=== PATIENT | male | born 1990 | race Caucasian/White ===

== ENCOUNTER 2023-12-06 20:45 | Emergency (ER) | payer OTHER, SELFPAY ==
--- NOTE | ~2023-12-06 | XR_ITS ---
EXAMINATION: XR SHOULDER, RIGHT CLINICAL INFORMATION: Pain after fall COMPARISON: None available. TECHNIQUE: AP external rotation, Grashey, scapular Y, and axillary views of the right shoulder. FINDINGS: The bones and soft tissues are normal. No fracture. Glenohumeral and acromioclavicular alignment is anatomic with normal joint space. No abnormal soft tissue calcifications. XR/XR shoulder RT min 2V IMPRESSION: Normal right shoulder. Electronically signed by: Fer Islas MD 12/06/2023 10:56 PM EDT
--- NOTE | 2023-12-06 20:47 | ED_ITS ---
HPI - General Adult General Chief complaint: Extremity Injury, Upper Stated complaint: Right shoulder injury Time Seen by Provider: 12/06/23 22:40 Source: patient Mode of arrival: ambulatory Limitations: no limitations History of Present Illness ED Provider: shannon FELDMAN narrative: Patient with the fell down to the ground and hit his right shoulder happened earlier today no deformity patient able to move his shoulder pretty well slight tenderness the top of the shoulder Related Data Previous Rx's ?Medication ?Instructions ?Recorded ibuprofen 600 mg tablet 600 mg PO Q6H PRN fever or pain 12/06/23 #30 tabs Allergies Allergy/AdvReac Type Severity Reaction Status Date / Time No Known Allergies Allergy Verified 12/06/23 20:50 Review of Systems 2 Review of Systems: Yes all other systems are reviewed and are negative PMFSH Social History Social History Advance Directives: No Advance Directives Information Provided: No Do you have a plan to hurt others: No Plan Physical Exam ED Vital Signs: Vital Signs - 24 hr 12/06/23 20:49 12/06/23 23:23 Temperature 98 F 97.9 F Pulse Rate 89 61 Respiratory Rate 20 18 Blood Pressure 140/89 H 140/83 H Pulse Oximetry 96 98 Oxygen Delivery Method Room Air Room Air BMI result Body Mass Index 34.0 Extrem Shoulder/upper arm images: 2 1. Mild diffuse tenderness open can sign negative for rotator cuff injury Course Course Course Narrative: RME performed by Elise Lara PA-C. Patient is a 33 year old assigned male at presenting to the emergency department with right shoulder pain. Patient states that he fell down onto the ground and hit his right shoulder. Detailed physical exam and review of systems are deferred to the primary care physician. Imaging ordered. Patient placed back in the waiting room pending room availability and results. Medications Administered Discontinued Medications Generic Name Dose Route Start Last Admin Trade Name Freq PRN Reason Stop Dose Admin Ibuprofen 600 mg 12/06/23 22:53 12/06/23 22:56 Ibuprofen 600 Mg Tablet PO 12/06/23 22:54 600 mg ONCE ONE Administration Medical Decision Making Medical Decision Making [facility] Narrative: Patient clinically with left shoulder contusion with no significant rotator cuff injury x-ray negative for fracture Discharge Plan Discharge Clinical Impression: Contusion of right shoulder Patient Disposition: Home, Self-Care Instructions: Shoulder Sprain (ED) Additional Instructions: Possible you have right shoulder cartilage injury Rest your right arm Wear sling for support Apply ice pack Ibuprofen for pain Follow with Orthopedics if pain continues Prescriptions: New ibuprofen 600 mg tablet 600 mg PO Q6H PRN (Reason: fever or pain) Qty: 30 0RF Referrals: Norm Reilly MD [Physician] - 1 week Stand Alone Forms: Work/School Release Discharge Date/Time: 12/06/23 23:42 Print Language: Slovenian
[2023-12-06 20:49] VITALS: BP 140/89; PULSE 89; RESP 20; TEMP 36.6; O2SAT 96; BMI 34.0
[2023-12-06] MEDS: Ibuprofen 600 MG TABLET PO (22:56)
[2023-12-06 23:23] VITALS: BP 140/83; PULSE 61; RESP 18; TEMP 36.6; O2SAT 98
== END 2023-12-06 23:42 | disposition home or self-care (01) ==
PROVIDERS: Emergency Provider Internal Medicine
DX: S40.012A Contusion of left shoulder, initial encounter (principal); W18.30XA Fall on same level, unspecified, initial encounter; Y93.9 Activity, unspecified; Y92.9 Unspecified place or not applicable; Y99.9 Unspecified external cause status
CPT/HCPCS: 73030; 99283

== ENCOUNTER → 2023-12-09 08:46 | Outpatient (BNVA) | payer OTHER, SELFPAY | PROVIDERS: Visit Provider Physician Assistant Medical | DX: S43.401A Unspecified sprain of right shoulder joint, initial encounter (principal); X58.XXXA Exposure to other specified factors, initial encounter | CPT/HCPCS: 99203 ==

== ENCOUNTER → 2023-12-16 09:25 | Outpatient (BNVA) | payer OTHER, SELFPAY | PROVIDERS: Visit Provider Internal Medicine | DX: S43.401A Unspecified sprain of right shoulder joint, initial encounter (principal); X58.XXXA Exposure to other specified factors, initial encounter | CPT/HCPCS: 99213 ==

== ENCOUNTER 2024-01-23 10:00 | Outpatient (RCR) | payer OTHER, BC, SELFPAY | END 2024-03-02 10:55 | disposition home or self-care (01) | LOC: HO.PT 10:00 | PROVIDERS: PCP Physician Assistant; Visit Provider Orthopaedic Surgery | DX: S43.51XD Sprain of right acromioclavicular joint, subsequent encounter (principal) | CPT/HCPCS: 97110; 97140; 97161; 97530 ==

== ENCOUNTER → 2024-01-24 10:40 | Outpatient (BNVA) | payer OTHER, SELFPAY | PROVIDERS: PCP Physician Assistant; Visit Provider Registered Nurse | DX: S43.51XD Sprain of right acromioclavicular joint, subsequent encounter (principal); W18.39XD Other fall on same level, subsequent encounter | CPT/HCPCS: 99213 ==

== ENCOUNTER 2024-08-03 23:34 | Emergency (ER) | payer OTHER, SELFPAY ==
[2024-08-03 23:39] VITALS: BP 119/70; PULSE 71; RESP 18; TEMP 36.7; O2SAT 97; BMI 34.7
[2024-08-04 00:21] LABS: MANUAL DIFF FLAG NO
[2024-08-04 00:23] LABS: Basophils Absolute Auto 0.1 X10*3/uL (0.0-0.2); Basophils Percent Auto 1.1 % (0-2); Eosinophils Absolute Auto 0.2 X10*3/uL (0.0-0.4); Eosinophils Percent Auto 2.3 % (0-4); Hematocrit 45.2 % (42.0-52.0); Hemoglobin 15.9 g/dl (14.0-18.0); Imm Gran Abs Auto 0.03 X10*3/uL (0.00-0.03); Imm Gran Pct Auto 0.3 % (0.0-0.4); Lymphocytes Absolute Auto 3.1 X10*3/uL (1.2-4.9); Lymphocytes Percent Auto 32.4 % (20-40); Mean Corpuscular HGB Conc 35.2 g/dl (31.0-36.0); Mean Corpuscular Volume 82.3 fL (80.0-98.0); Mean Platelet Volume 9.7 fL (9.4-12.4); Monocytes Absolute Auto 0.7 X10*3/uL (0.1-1.2); Monocytes Percent Auto 7.1 % (2-11); Neutrophils Absolute Auto 5.5 x10*3/uL (2.0-8.3); Neutrophils Percent Auto 56.8 % (45-73); Platelet Count 242 X10*3/uL (160-400); Red Blood Count 5.49 X10*6/uL (4.60-5.80); Red Cell Distribution Width 13.1 % (11.0-16.0); White Blood Count 9.7 X10*3/uL (4.8-10.8)
[2024-08-04 00:36] LABS: Alanine Aminotransferase 29 U/L (0-40); Albumin Level 4.3 g/dL (3.5-5.0); Alkaline Phosphatase 72 U/L (39-117); Anion Gap 13 (12-20); Aspartate Amino Transferase 27 U/L (5-37); Bilirubin Direct 0.1 mg/dL (0.0-0.5); Bilirubin Total 0.4 mg/dL (0.0-1.0); Blood Urea Nitrogen 15 mg/dL (9-16); Calcium 9.1 mg/dL (8.4-10.2); Carbon Dioxide 25 mmol/L (22-29); Chloride 108 mmol/L (96-108); Creatinine Clr Calc Pharmacy 110.9; Estimated Glomerular Filt Rate > 60; Glucose Random 95 mg/dL (60-115); Potassium 4.2 mmol/L (3.3-5.1); Sodium 142 mmol/L (135-145)
--- NOTE | 2024-08-04 00:54 | ED_ITS ---
HPI - Medical Clearance General Chief complaint: Body Fluid Exposure Stated complaint: Body Fluid Exposure Time Seen by Provider: 08/04/24 00:14 Source: patient Mode of arrival: ambulatory Limitations: no limitations History of Present Illness ED Provider: Catarina Sprague NP HPI Narrative: Patient is a 34-year-old male who presents to the emergency department for evaluation. 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 Reports that the patient had spit into his face and that he felt the contact and that some went directly into his mouth. Related Information Previous Rx's ?Medication ?Instructions ?Recorded cyclobenzaprine 5 mg tablet 5 mg PO .QHS PRN muscle spasm #20 12/23/23 tabs Allergies Allergy/AdvReac Type Severity Reaction Status Date / Time No Known Allergies Allergy Verified 08/03/24 23:41 Review of Systems 2 Review of Systems: Yes all other systems are reviewed and are negative PMFSH Past Medical History Attestation statement: The following information was validated with the patient. Source: old records reviewed Social History Social History Advance Directives: No Advance Directives Information Provided: Yes Physical Exam 2 Vital Signs: Vital Signs: Last Vital Signs Temp 98.1 F 08/03/24 23:39 Pulse 71 08/03/24 23:39 Resp 18 08/03/24 23:39 BP 119/70 08/03/24 23:39 Pulse Ox 97 08/03/24 23:39 O2 Del Method Room Air 08/03/24 23:39 BMI result Body Mass Index 34.7 Appearance: Alert.?Oriented to person, place and time. No acute distress.?Normal affect. Eyes: Pupils equal, round and reactive to light.? ENT: Pharynx normal.?? Neck: Normal inspection.? Neck supple.?? CVS: Heart sounds normal. Normal heart rate and rhythm.? Pulses normal.?? Respiratory: No respiratory distress.? Lung sounds clear to auscultation bilaterally?? Skin: Skin warm and dry.? Normal skin color.? Extremities: No lower extremity edema.? Neuro: Moves all extremities spontaneously. Sensation intact bilaterally. Ambulates with normal steady gait. Medical Decision Making Medical Decision Making MDM Narrative: Patient is a 34-year-old male perceived history of hepatitis B vaccination no known history of infectious diseases such as HIV or hepatitis presenting for bodily fluid exposure to the mucous membranes working as per HPI. Patient the unlikelyhood of transmission of HIV with bottle fluid exposure of this nature. Reviewed with my attending Dr. Juan that HIV prophylaxis would not be indicated in this case. Testing for hepatitis and HIV has been sent to the lab, reviewed with patient this will include whether he has antibody/immunity to hepatitis-B, in any positive testing results would indicate a prior infection. Understanding of this. Stable for discharge, outpatient follow-up with [facility] discuss Differential Diagnosis Differential Diagnoses: The differential diagnosis associated with the presentation includes (See narrative above) Lab Data MDM Lab Attestation statement: I reviewed the patient's lab results. (CBC and CMP unremarkable) 08/04/24 00:16 08/04/24 00:16 Labs: Lab Results 08/04/24 Range/Units 00:16 WBC 9.7 (4.8-10.8) X10*3/uL RBC 5.49 (4.60-5.80) X10*6/uL Hgb 15.9 (14.0-18.0) g/dl Hct 45.2 (42.0-52.0) % MCV 82.3 (80.0-98.0) fL MCH 29.0 (27.0-33.0) pg MCHC 35.2 (31.0-36.0) g/dl RDW 13.1 (11.0-16.0) % Plt Count 242 (160-400) X10*3/uL MPV 9.7 (9.4-12.4) fL Immature Gran % (Auto) 0.3 (0.0-0.4) % Neut % (Auto) 56.8 (45-73) % Lymph % (Auto) 32.4 (20-40) % Eaton % (Auto) 7.1 (2-11) % Eos % (Auto) 2.3 (0-4) % Baso % (Auto) 1.1 (0-2) % Lymph # (Auto) 3.1 (1.2-4.9) X10*3/uL Eaton # (Auto) 0.7 (0.1-1.2) X10*3/uL Eos # (Auto) 0.2 (0.0-0.4) X10*3/uL Baso # (Auto) 0.1 (0.0-0.2) X10*3/uL Abs Immat Gran (auto) 0.03 (0.00-0.03) X10*3/uL Absolute Neuts (auto) 5.5 (2.0-8.3) x10*3/uL Absolute Nucleated RBC 0.000 (0.0-0.012) X10*3/uL Nucleated RBC % (auto) 0.0 (0.0-0.2) /100WBC Sodium 142 (135-145) mmol/L Potassium 4.2 (3.3-5.1) mmol/L Chloride 108 (96-108) mmol/L Carbon Dioxide 25 (22-29) mmol/L Anion Gap 13 (12-20) BUN 15 (9-16) mg/dL Creatinine 1.15 (0.5-1.4) mg/dL Estim Creat Clear Calc 110.9 Estimated GFR > 60 Random Glucose 95 (60-115) mg/dL Calcium 9.1 (8.4-10.2) mg/dL Total Bilirubin 0.4 (0.0-1.0) mg/dL Direct Bilirubin 0.1 (0.0-0.5) mg/dL AST 27 (5-37) U/L ALT 29 (0-40) U/L Alkaline Phosphatase 72 (39-117) U/L Total Protein 7.0 (6.5-8.0) g/dL Albumin 4.3 (3.5-5.0) g/dL Discharge Plan Discharge Clinical Impression: Exposure to blood or body fluid Patient Disposition: Home, Self-Care Instructions: Body Substance Exposure (ED) Additional Instructions: Discussed, based on the bodily fluid exposure, it is not indicated to have HIV prophylaxis. Testing today for HIV and hepatitis has been sent to the lab if there are any positive results who receive a phone call. We will also check to see whether you have immunity/antibodies to hepatitis-B. You may follow-up with [facility] Prescriptions: No Action cyclobenzaprine 5 mg tablet 5 mg PO .QHS PRN (Reason: muscle spasm) Qty: 20 0RF Rx Instructions: can take a second dose, to 10mg if needed Referrals: [facility] [Provider Group] Print Language: Pashto
[2024-08-04 01:04] VITALS: BP 119/70; PULSE 71; RESP 18; TEMP 36.7; O2SAT 97
[2024-08-04 04:18] LABS: HBS Num1 17.37 mIU/mL (0-7.99); HBc Num1 0.06 S/CO (0.00-0.79); HBsAGNum1 0.35 S/CO (0.00-0.99); HIV AB/AG Nonreactive (Nonreactive); HIV Num 1 0.06 S/CO (0.00-0.99); Hepatitis B Core Antibody Nonreactive (Nonreactive); Hepatitis B Surface Antigen Negative (Negative); ~HepC Num1 0.09 S/CO (0.00-0.79); ~Hepatitis B Surface Antibody REACTIVE (Nonreactive); ~Hepatitis C Antibody Nonreactive (Nonreactive)
== END 2024-08-04 01:04 | disposition home or self-care (01) ==
PROVIDERS: Emergency Provider Internal Medicine; PCP Physician Assistant
DX: Z04.2 Encounter for examination and observation following work accident (principal); Z77.21 Contact with and (suspected) exposure to potentially hazardous body fluids
CPT/HCPCS: 36415; 80048; 80076; 85025; 86704; 86706; 86803; 87340; 87389; 99282; 99283

== ENCOUNTER → 2024-08-06 08:22 | Outpatient (BNVA) | payer OTHER, SELFPAY | PROVIDERS: PCP Physician Assistant; Visit Provider Physician Assistant | DX: Z77.21 Contact with and (suspected) exposure to potentially hazardous body fluids (principal); Z02.79 Encounter for issue of other medical certificate | CPT/HCPCS: 99204 ==